=== PATIENT | female | born 1980 | race Caucasian/White ===

== ENCOUNTER 2018-03-03 21:07 | Observation (INO) | payer OTHER ==
[2018-03-03] MEDS ORDERED: Promethazine HCl 25 MG/ML VIAL ONE (21:41)
[2018-03-03 22:05] LABS: Hemoglobin 13.6 g/dL (12.0-16.0); Mean Corpuscular HGB CONC 33.2 g/dL (32.0-36.0); Mean Corpuscular Volume 87.3 fL (78.0-98.0); Mean Platelet Volume 7.3 fL (7.4-10.4); Platelet Count 381 thou/uL (130-400); RBC Distribution Width 12.4 % (11.5-14.5); Red Blood Cell (RBC) Count 4.68 mill/uL (4.20-5.40); White Blood Cell (WBC) Count 23.5 thou/uL (4.8-10.8)
[2018-03-03 22:13] LABS: BHCG - Serum Negative (NEGATIVE); Pregs Control Background? CLEAR/WHITE (CLR/WHITE); Pregs Control Bar Appear? YES (CONTROL BAR)
[2018-03-03 22:23] LABS: Band 4 % (5-11); Lymphocytes 9 % (21-51); MDiff Complete? YES; Monocytes 6 % (0-10); Neutrophil 81 % (42-75); PLT Morphology Comment Appears Adequate; RBC Morphology Normal
[2018-03-03 22:33] LABS: ALT (SGPT) 23 U/L (8-55); AST (SGOT) 20 U/L (5-34); Albumin 3.8 g/dL (3.5-5.0); Alkaline Phosphatase 99 U/L (40-150); Anion Gap 12 mmol/L (10-20); BUN (Urea Nitrogen) 11 mg/dL (7.0-18.7); Bilirubin, Total 0.3 mg/dL (0.2-1.2); Calc. Creatinine Clearance 0 mL/min (70-130); Calcium 8.6 mg/dL (7.8-10.44); Carbon Dioxide 23 mmol/L (22-29); Chloride 103 mmol/L (98-107); Estimated GFR-MDRD 74; Globulin 3.6 g/dL (2.4-3.5); Glucose 277 mg/dL (70-105); Lipase 23 U/L (8-78); Magnesium 1.8 mg/dL (1.6-2.6); Potassium 3.8 mmol/L (3.5-5.1); Protein, Total 7.4 g/dL (6.0-8.3); Sodium 134 mmol/L (136-145)
[2018-03-04] MEDS ORDERED: Metoclopramide HCl 10 MG/2 ML VIAL ONE (00:28)
[2018-03-04] MEDS ORDERED: Sodium Chloride 0.9% 1,000 ML IV SCH (01:38)
[2018-03-04] MEDS ORDERED: Ondansetron ODT 4 MG TAB SL PRN (01:38)
[2018-03-04] MEDS ORDERED: Ondansetron PF 4 MG/2 ML Vial IVP PRN (01:38)
[2018-03-04] MEDS ORDERED: Promethazine HCl 25 MG/ML VIAL IVPB PRN (01:39)
[2018-03-04] MEDS ORDERED: Bisacodyl 5 MG TAB PO PRN (02:18)
[2018-03-04] MEDS ORDERED: Senokot S 8.6-50 MG TAB PO PRN (02:18)
[2018-03-04] MEDS ORDERED: Calcium Carbonate 500 MG ChewTAB PO PRN (02:18)
[2018-03-04] MEDS ORDERED: Dextrose 50% Abboject 50 ML SYRINGE SLOW IVP PRN (02:27)
[2018-03-04] MEDS ORDERED: HumaLOG 300 UNITS/3 ML VIAL SC PRN ×2 (02:27→22:28)
[2018-03-04] MEDS ORDERED: Dextrose 5% in Water 1,000 ML IV PRN (02:27)
[2018-03-04] MEDS: Sodium Chloride 0.9% 1,000 ML IV SCH ×3 (02:43→16:52)
--- NOTE | 2018-03-04 04:02 | PDOC.EVN ---
Event Note - Event Note Event Note: h&p dictated [id number]
[2018-03-04 04:11] LABS: Medtox Reader # READER 1; Tricyclic Screen Detected (NotDetected)
[2018-03-04 04:12] LABS: Amphetamine Not Detected (NotDetected); Barbiturates Screen Not Detected (NotDetected); Benzodiazepine Screen Not Detected (NotDetected); Cocaine Metabolite Screen Not Detected (NotDetected); Medtox Control Line Valid? VALID (VALID); Methadone Not Detected (NotDetected); Methamphetamine Not Detected (NotDetected); Opiate Screen Not Detected (NotDetected); Oxycodone Screen Not Detected (NotDetected); Phencyclidine (PCP) Not Detected (NotDetected); THC/Cannabinoid Screen Not Detected (NotDetected)
[2018-03-04 05:06] LABS: #Eosinphils 0.2 thou/uL (0.0-0.7); #Lymphocytes 1.7 thou/uL (1.20-3.40); #Monocytes 0.7 thou/uL (0.11-0.59); #Neutrophils 15.1 thou/uL (1.40-6.50); %Basophils 0.1 % (0.0-1.0); %Lymphocytes 9.7 % (21.0-51.0); %Neutrophils 85.2 % (42.0-75.0); Hemoglobin 13.1 g/dL (12.0-16.0); Mean Corpuscular HGB CONC 32.5 g/dL (32.0-36.0); Mean Corpuscular Hemoglobin 28.3 pg (27.0-31.0); Mean Corpuscular Volume 87.1 fL (78.0-98.0); Mean Platelet Volume 7.3 fL (7.4-10.4); Platelet Count 357 thou/uL (130-400); RBC Distribution Width 12.4 % (11.5-14.5); Red Blood Cell (RBC) Count 4.61 mill/uL (4.20-5.40); White Blood Cell (WBC) Count 17.7 thou/uL (4.8-10.8)
[2018-03-04 05:14] LABS: Hemoglobin A1c 7.8 % (4.0-6.0)
[2018-03-04 05:27] LABS: ALT (SGPT) 20 U/L (8-55); AST (SGOT) 17 U/L (5-34); Albumin 3.7 g/dL (3.5-5.0); Alkaline Phosphatase 91 U/L (40-150); Anion Gap 11 mmol/L (10-20); BUN (Urea Nitrogen) 10 mg/dL (7.0-18.7); Bilirubin, Total 0.4 mg/dL (0.2-1.2); Calc. Creatinine Clearance 223 mL/min (70-130); Calcium 8.2 mg/dL (7.8-10.44); Carbon Dioxide 21 mmol/L (22-29); Chloride 105 mmol/L (98-107); Estimated GFR-MDRD 86; Globulin 3.5 g/dL (2.4-3.5); Glucose 282 mg/dL (70-105); Magnesium 1.6 mg/dL (1.6-2.6); Protein, Total 7.2 g/dL (6.0-8.3); Sodium 133 mmol/L (136-145)
--- NOTE | 2018-03-04 06:11 | HP ---
PRIMARY CARE PHYSICIAN: Dr. Thurston. CHIEF COMPLAINT: Nausea, diarrhea, cramping, and vomiting. HISTORY OF PRESENT ILLNESS: This is a 37-year-old female with history of chronic nausea, vomiting, d iarrhea with several recurrences, obesity, hypertension, status post vertical band gastroplasty who p resents with a chief complaint of nausea, diarrhea, abdominal cramping, and vomiting. The patient st ates a prior history of two other episodes for which she has been seen by Infectious Disease on outpa tient basis. It appears that her diagnosis is not particularly clear. She last had an episode of sy mptoms requiring hospitalization approximately a year ago. She last had similar symptoms, but less s evere approximately a month ago. Two days ago, the patient started taking prednisone 5 mg orally for presumptive diagnosis of Marko disease. At the time of my evaluation, the patient currently has had 5 episodes of diarrhea in the emergency d epartment and countless episodes of emesis since yesterday. She currently does not have any complain ts of either. REVIEW OF SYSTEMS: As per HPI. Constitutional: No fevers, no chills, no significant weight changes , despite the vomiting and the diarrhea. Cardiovascular: No chest pain, no chest pressure. Respira tory: No shortness of breath, no cough, no dyspnea with exertion. Gastrointestinal: As noted above . Genitourinary: No dysuria, change in urinary frequency, quality, quantity. Musculoskeletal: No new myalgias or arthralgias. PAST MEDICAL HISTORY: As per HPI includes the followin. Hypertension. 2. Rheumatoid arthritis. 3. Hypertension. 4. Tobacco use. 5. Obesity. 6. Status post vertical band gastroplasty. 7. Status post . 8. Status post left knee repair 9. Status post hernia repair. 10. Previously treated for her symptoms with rifaximin, which improved and resolved her symptoms. H owever, on subsequent episodes it was less efficacious. HOME MEDICATIONS: Currently includes following: Amlodipine 5 mg p.o. daily, zolpidem 10 mg p.o. at bedtime p.r.n., pantoprazole 40 mg p.o. daily, lisinopril 20 mg p.o. daily, diclofenac 75 mg p.o. b.i .d., carvedilol 25 mg p.o. b.i.d., bupropion 150 mg p.o. daily, amitriptyline 25 mg p.o. at bedtime. Patient was previously taking Humira, but states she has not been on it recently. ALLERGIES: No known drug allergies. FAMILY HISTORY: The patient denies any unknown family history of gastrointestinal disease. She does have a family history of autoimmune disorder in her mother who had severe rheumatoid arthritis as we ll. SOCIAL HISTORY: The patient denies any alcohol or illicit drug use, currently uses nicotine in the f orm of vaping. The patient wishes to be FULL CODE at this point in time. PHYSICAL EXAMINATION: GENERAL: The patient is awake, alert, conversant, in no acute distress, lying in the hospital bed. HEENT: Normocephalic, atraumatic. Equal ocular motions are intact. Slightly dry mucous membranes. CARDIOVASCULAR: S1, S2. No murmurs, rubs, or gallops. Pulses 2+ bilateral upper extremities. No p itting pedal edema. RESPIRATORY: Reasonable air movement. No conversational dyspnea. LUNGS: Clear to auscultation bilaterally. No wheezes, rales, or rhonchi. ABDOMEN: Obese, positive bowel sounds, soft, nontender to palpation. MUSCULOSKELETAL: Moving all 4 extremities independently. LABORATORY DATA: WBC 23.5, hemoglobin 13.6, hematocrit 40.8, platelets 381,000. Sodium 134, potassi um 3.8, chloride 103, bicarbonate 23, anion gap 12, BUN 11, creatinine 0.86, glucose 277, calcium 8.6 , magnesium 1.8, total bilirubin 0.3, AST 20, ALT 23, alkaline phosphatase 99, total protein 7.9, alb umin 3.6, lipase of 23. Serum negative. ASSESSMENT AND PLAN: A 37-year-old female presenting with a chief complaint of nausea, diarrhea, abd ominal cramping and vomiting. 1. Gastrointestinal symptoms. The patient has a prior history of presumed colitis, possibly from in fectious etiology. The patient also has accompanying leukocytosis. Pending C. diff, pending stool c ulture, pending stool, WBCs. Supportive management with IV fluids, nausea medication. Unclear if th is is truly the etiology. The patient has also seen gastroenterology in the past undergone endoscopy and colonoscopy without a diagnosis so far. We will also go ahead and check a CRP, ESR, fecal fat. 2. Question of Marko disease. The patient was diagnosed presumptively and placed on prednisone. If the patient truly does have adrenal insufficiency, it would not be acute flare or illness to decrease her steroid amount. Once her home steroid amount is confirmed, we will continue with that and close monitoring of her hemodynamics and overall condition. 3. Leukocytosis, unclear if this is secondary to infectious or reactive etiology. We will continue to monitor. 4. Diet: As tolerated. 5. Activity: As tolerated. 6. Deep venous thrombosis prophylaxis with enoxaparin.
[2018-03-04] MEDS: Famotidine/PF 20 mg/2ml Vial SLOW IVP SCH ×2 (09:11→19:57)
[2018-03-04] MEDS ORDERED: predniSONE 5 MG TAB PO SCH ×2 (09:16→09:30)
[2018-03-04] MEDS: Enoxaparin Sodium 40 MG/0.4 ML SYRINGE SC SCH (09:20)
[2018-03-04] MEDS ORDERED: Amlodipine 5 MG TAB PO SCH (10:45)
[2018-03-04] MEDS ORDERED: Lisinopril 20 MG TAB PO SCH (10:45)
[2018-03-04] MEDS ORDERED: Zolpidem Tartrate 5 MG TAB PO PRN (10:53)
--- NOTE | 2018-03-04 16:03 | PDOC.PN ---
- Subjective Encounter Start Date: 03/04/18 Encounter Start Time: 09:00 Patient lying in bed, she reports feeling a little better after receiving zofran and IV fluids. She reports no BM since 2am this morning. Stool cultures negative, but do show lactoferrin. She denies chest pain, shortness of breath. She does admit to nausea but no vomiting, with mild abdominal cramping. - Objective Resuscitation Status: Resuscitation Status FULL:Full Resuscitation MAR Reviewed: Yes Vital Signs & Weight: Vital Signs (12 hours) Temp Pulse Resp BP Pulse Ox 03/04/18 11:24 99.8 F H 112 H 12 122/58 L 96 03/04/18 11:00 113 H 03/04/18 07:44 99.3 F 113 H 12 120/64 95 Weight Weight 306 lb 11.2 oz I&O: 03/03/18 03/04/18 03/05/18 07:59 06:59 06:59 Intake Total 360 Output Total Balance 360 Result Diagrams: 03/04/18 04:27 03/04/18 04:27 Additional Labs: Accuchecks 03/04/18 10:18 POC Glucose 149 H Radiology Reviewed by me: Yes EKG Reviewed by me: Yes Phys Exam - Physical Examination Constitutional: NAD morbid obese HEENT: PERRLA, moist MMs, sclera anicteric, oral pharynx no lesions Neck: no nodes, no JVD, supple Respiratory: no wheezing, no rales, no rhonchi, clear to auscultation bilateral Cardiovascular: RRR, no significant murmur, no rub Gastrointestinal: soft, no distention, positive bowel sounds mild diffuse tenderness, no chavis sign no tenderness at mcburney point, no rebound, no guarding Musculoskeletal: no edema, pulses present Neurological: non-focal, normal sensation, moves all 4 limbs Lymphatic: no nodes Psychiatric: normal affect, A&O x 3 Skin: no rash, normal turgor, cap refill <2 seconds Dx/Plan (1) Nausea & vomiting Code(s): R11.2 - NAUSEA WITH VOMITING, UNSPECIFIED Status: Acute (2) Diarrhea Code(s): R19.7 - DIARRHEA, UNSPECIFIED Status: Acute (3) [place]'s disease Code(s): E27.1 - PRIMARY ADRENOCORTICAL INSUFFICIENCY Status: Acute (4) Leukocytosis Code(s): D72.829 - ELEVATED WHITE BLOOD CELL COUNT, UNSPECIFIED Status: Acute - Plan cont current plan of care, DVT proph w/SCDs * Continue medical management and symptomatic treatment. Stool cultures negative for ecoli, c diff, campylobacter. Does show normal ladi and lactoferrin. * She will be restarted on home medications including prednisone. * Continue IV normal saline for hydration, monitor vitals and labs * Further management pending patient progress
[2018-03-04] MEDS: Carvedilol 25 MG TAB PO SCH (16:24)
[2018-03-04] MEDS: Acetaminophen 325 MG TAB PO PRN (19:57)
[2018-03-04] MEDS ORDERED: Amitriptyline HCl 25 MG TAB PO SCH (21:00)
[2018-03-05] MEDS: Acetaminophen 325 MG TAB PO PRN ×2 (02:46→11:52)
[2018-03-05] MEDS: Sodium Chloride 0.9% 1,000 ML IV SCH ×3 (02:50→13:30)
[2018-03-05 05:03] LABS: #Eosinphils 0.3 thou/uL (0.0-0.7); #Lymphocytes 2.5 thou/uL (1.20-3.40); #Monocytes 0.6 thou/uL (0.11-0.59); #Neutrophils 7.4 thou/uL (1.40-6.50); %Basophils 0.1 % (0.0-1.0); %Eosinophils 3.2 % (0.0-10.0); %Lymphocytes 22.9 % (21.0-51.0); %Monocytes 5.5 % (0.0-10.0); %Neutrophils 68.3 % (42.0-75.0); Hemoglobin 11.3 g/dL (12.0-16.0); Mean Corpuscular HGB CONC 32.7 g/dL (32.0-36.0); Mean Corpuscular Hemoglobin 28.4 pg (27.0-31.0); Mean Platelet Volume 7.1 fL (7.4-10.4); Platelet Count 272 thou/uL (130-400); RBC Distribution Width 12.5 % (11.5-14.5); Red Blood Cell (RBC) Count 3.98 mill/uL (4.20-5.40); White Blood Cell (WBC) Count 10.9 thou/uL (4.8-10.8)
[2018-03-05 05:13] LABS: ALT (SGPT) 15 U/L (8-55); AST (SGOT) 13 U/L (5-34); Albumin 3.2 g/dL (3.5-5.0); Alkaline Phosphatase 74 U/L (40-150); Anion Gap 11 mmol/L (10-20); BUN (Urea Nitrogen) 5 mg/dL (7.0-18.7); Bilirubin, Total 0.6 mg/dL (0.2-1.2); Calc. Creatinine Clearance 254 mL/min (70-130); Calcium 7.7 mg/dL (7.8-10.44); Carbon Dioxide 22 mmol/L (22-29); Chloride 106 mmol/L (98-107); Estimated GFR-MDRD Greater than 90; Glucose 170 mg/dL (70-105); Magnesium 1.5 mg/dL (1.6-2.6); Potassium 3.5 mmol/L (3.5-5.1); Protein, Total 6.2 g/dL (6.0-8.3); Sodium 135 mmol/L (136-145)
[2018-03-05] MEDS ORDERED: predniSONE 5 MG TAB PO SCH (08:00)
[2018-03-05] MEDS: Carvedilol 25 MG TAB PO SCH ×2 (08:08→17:22)
[2018-03-05] MEDS: Famotidine/PF 20 mg/2ml Vial SLOW IVP SCH (08:09)
[2018-03-05] MEDS: Enoxaparin Sodium 40 MG/0.4 ML SYRINGE SC SCH (08:09)
[2018-03-05] MEDS ORDERED: Lisinopril 20 MG TAB PO SCH (09:00)
[2018-03-05] MEDS ORDERED: Amlodipine 5 MG TAB PO SCH (09:00)
[2018-03-05] MEDS ORDERED: Bupropion 150 MG XL TAB PO SCH (09:00)
[2018-03-05 13:45] VITALS: BMI 56.2
--- NOTE | 2018-03-05 16:32 | PDOC.EVN ---
Event Note - Event Note Event Note: Pt management reviewed with Bebe Oden INVENTORY AUDITOR. agree with management and DC plan
[2018-03-05] MEDS ORDERED: Acetaminophen 325 MG TAB PO SCH (16:45)
[2018-03-05 16:58] VITALS: BP 121/56; TEMP 98.6
--- NOTE | 2018-03-06 03:42 | DIS ---
DATE OF ADMISSION: 03/04/2018 DATE OF DISCHARGE: 03/05/2018 PRIMARY CARE PHYSICIAN: Dr. Thurston. CONSULTATIONS: None. PROCEDURES: None. DISCHARGE DIAGNOSES: Nausea, vomiting which is resolved; diarrhea, which is resolved; adrenal insufficiency; hypertension; rheumatoid arthritis. HOSPITAL COURSE: Patient is a 37-year-old female with a history of hypertension , obesity, status post vertical band gastroplasty, who presented to the ER on day of admission for nausea, vomiting, diarrhea, and abdominal cramping. The patient states that she has had similar episodes in the past, was seen by Infectious Disease on an outpatient basis and one of these episodes required hospitalization about a year ago. Reports of last week she was started on prednisone 5 mg b.i.d. by per PCP for a presumptive diagnosis of Addisons disease. One day of discharge, patient denied any abdominal pain, denied nausea, vomiting, and diarrhea, reports symptoms stopped about 2:30 in the morning. She was eager to progress to a full meal for lunch, which she tolerated well. The patient will be discharged back to see Dr. Thurston and is instructed to continue the prednisone and to follow up within the next week. REVIEW OF SYSTEMS: Constitutional: No fevers, chills, or significant weight changes. Cardiovascular: No chest pain or chest pressure. Respiratory: No shortness of breath, no cough or WILCOX. Gastrointestinal: Reports nausea, vomiting, diarrhea has resolved. Genitourinary: No dysuria, change in urinary frequency. Musculoskeletal: No new myalgias or arthralgias. PHYSICAL EXAMINATION: VITAL SIGNS: Temperature 97.6, pulse 79, respirations 16, blood pressure 158/ 73. GENERAL: The patient is awake, alert, and oriented and in no acute distress, lying in the hospital bed. HEENT: Head is normocephalic, atraumatic. Pupils are equal and reactive to light. Extraocular motions are intact. Mucous membranes are moist. CARDIOVASCULAR: S1, S2. No murmurs, gallops, or rubs. Pulses +2 bilaterally. No pitting edema is noted. RESPIRATORY: Clear to auscultation. No wheezes, rales, or rhonchi. ABDOMEN: Soft, nontender on palpation. Positive bowel sounds x4. MUSCULOSKELETAL: Moving all 4 extremities independently. LABORATORY DATA: The patient had a stool sample collected which was negative for C. diff, positive for lactoferrin and negative for E. coli. White blood cell count today down to 10.9 from 23.5 on admission, sodium 135, potassium 3.5 , chloride 106, carbon dioxide 22, gap 11, BUN 5, creatinine 0.66, glucose was 170, calcium 7.7, magnesium 1.5. Cortisol was noted to be 2.6 when taken today at 1330 hours. DISCHARGE MEDICATIONS: Patient will be discharged home on her home medications which include amitriptyline 25 mg p.o. at bedtime, amlodipine 5 mg p.o. daily, Wellbutrin 150 mg p.o. daily, Coreg 25 mg p.o. b.i.d., diclofenac 75 mg b.i.d., lisinopril 20 mg p.o. b.i.d., prednisone 5 mg p.o. b.i.d., Ambien 10 mg p.o. at bedtime as needed. ALLERGIES: The patient has no known allergies. DISCHARGE INSTRUCTIONS: Patient discharged in stable condition to home and should follow up with Dr. Thurston in the next week. JANE
[2018-03-06 17:15] LABS: Neutral Fats And/Or Soaps Normal (.)
== END 2018-03-05 17:29 | disposition home or self-care (01) ==
LOC: ERS 21:07 → 2SW 03-04 01:30
PROVIDERS: ADMIT Internal Medicine; ATTEND Internal Medicine
DX: R11.2 Nausea with vomiting, unspecified (principal); R19.7 Diarrhea, unspecified; R10.9 Unspecified abdominal pain; E27.1 Primary adrenocortical insufficiency; D72.829 Elevated white blood cell count, unspecified; F17.290 Nicotine dependence, other tobacco product, uncomplicated; I10 Essential (primary) hypertension; M06.9 Rheumatoid arthritis, unspecified; E66.9 Obesity, unspecified; Z68.43 Body mass index [BMI] 50.0-59.9, adult; Z79.52 Long term (current) use of systemic steroids; Z79.899 Other long term (current) drug therapy; Z98.84 Bariatric surgery status
CPT/HCPCS: 36415; 36416; 80053; 80306; 82274; 82533; 82705; 83036; 83630; 83690; 83735; 84443; 84703; 85025; 85652; 86140; 86674; 87045; 87046; 87077; 87324; 87449; 87899; 90471; 90686; 93005; 96361; 96365; 96367; 96372; 96375; 96376; G0008; G0378; J1650; J2550; J2765; Q0162; S0028